=== PATIENT | male | born 1970 | race Two or more races ===

== ENCOUNTER 2016-10-17 08:40 | Observation (INO) | payer OTHER ==
--- NOTE | 2016-10-17 08:50 | CPEKG ---
Heart Rate: 73 RR Interval: 822 P-R Interval: 160 QRSD Interval: 88 QT Interval: 376 QTC Interval: 415 P [place]: 24 QRS [place]: 25 T Wave [place]: 12 EKG Severity - NORMAL ECG - EKG Impression: SINUS RHYTHM Electronically Signed By: Yefri Franz 17-Oct-2016 09:12:16
[2016-10-17] MEDS ORDERED: NS 1,000 ML IV ONE (09:06)
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
[2016-10-17 09:16] LABS: % IMMATURE GRANULYOCYTES 0.4 % (0.0-1.1); ABSOLUTE IMMATURE GRANULOCYTES 0.04 10^3/uL (0.00-0.10); ADD DIFF? NO; ADD MORPH? NO; ADD SCAN? NO; ATYPICAL LYMPHOCYTE FLAG 10 (0-99); FRAGMENT RBC FLAG 0 (0-99); HEMOGLOBIN 16.9 g/dL (13.7-17.5); LEFT SHIFT FLG 0 (0-99); LIPEMIA HEMOLYSIS FLAG 90 (0-99); MEAN CELL HEMOGLOBIN 31.4 pg (27.9-34.1); MEAN CELL HEMOGLOBIN CONCENTR. 34.5 g/dL (32.4-36.7); MEAN CELL VOLUME 90.9 fL (81.5-99.8); MEAN PLATELET VOLUME 9.6 fL (8.7-11.7); PLATELET CLUMPS FLAG 0 (0-99); PLATELET COUNT 192 10^3/uL (150-400); RED BLOOD CELL COUNT 5.39 10^6/uL (4.40-6.38); RED CELL DISTRIBUTION WIDTH 13.2 % (11.5-15.2)
[2016-10-17 09:24] LABS: INR 0.97 (0.83-1.16); PROTIME(PATIENT) 12.8 SEC (12.0-15.0)
[2016-10-17 09:33] LABS: ANION GAP 13 mEq/L (8-16); CALCIUM 9.5 mg/dL (8.5-10.4); CARBON DIOXIDE 25 mEq/l (22-31); CHLORIDE 103 mEq/L (97-110); CREATININE 0.8 mg/dL (0.7-1.3); GLOMERULAR FILTRATION RATE > 60; GLUCOSE 87 mg/dL (70-100); POTASSIUM 4.3 mEq/L (3.5-5.2); SODIUM 141 mEq/L (134-144)
[2016-10-17 09:43] LABS: TROPONIN I < 0.012 ng/mL (0-0.034)
[2016-10-17] MEDS ORDERED: IOPAMIDOL (ISOVUE-300) 100 ML BTL IV ONE (10:26)
[2016-10-17] MEDS ORDERED: HYDROmorphONE/DILAUDID 1 MG/ML SYR IVP ONE (13:23)
[2016-10-17] MEDS ORDERED: ONDANSETRON 4 MG/2 ML VIAL IVP PRN (14:52)
[2016-10-17] MEDS ORDERED: ACETAMINOPHEN 325 MG TAB PO PRN (14:52)
[2016-10-17] MEDS ORDERED: ONDANSETRON DISINTEGRATING 4 MG TAB PO PRN (14:52)
[2016-10-17] MEDS ORDERED: OXYCODONE/APAP 5/325 TAB PO PRN (14:52)
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
[2016-10-17] MEDS: IBUPROFEN 200 MG TAB PO PRN ×2 (18:09→22:47)
[2016-10-17 23:15] VITALS: TEMP 97.8
[2016-10-18 07:48] VITALS: BP 119/74; PULSE 77; RESP 14
[2016-10-18 09:49] VITALS: O2SAT 94
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
[2016-10-18] MEDS: IBUPROFEN 200 MG TAB PO PRN (12:28)
--- NOTE | 2016-10-18 15:32 | GDS ---
[f rep st] DISCHARGE SUMMARY DISCHARGE DIAGNOSIS: Transient lower extremity weakness. CONSULTATIONS: Dr. Carias of Neurology. STUDIES AND PROCEDURES DONE: 1. Thoracic spine MRI. 2. Cervical spine MRI. 3. Brain MRI. 4. CT angio of the chest. 5. CT angio of the abdomen and pelvis. 6. Lumbar spine MRI. PHYSICAL EXAM: GENERAL: The patient is alert. VITAL SIGNS: Afebrile at 36.6, pulse is 77, respir atory rate is 14, blood pressure is 119/74. He is saturating 97% on room air. I have seen and eval uated the patient on the day of discharge. HOSPITAL COURSE: The patient is a 46-year-old male who presented to the emergency room with complai nts of sudden onset bilateral lower extremity weakness and numbness. He was evaluated during this h ospitalization with extensive radiological studies as well as a Neurology consult. No etiology has been identified at the time of disposition; however, the patient's symptoms have completely resolved . He is denying any further pain or abnormalities. He will follow up in the outpatient setting wit otis Carias in the Neurology office for further testing including EMG testing. I have also recomm ended that the patient have an outpatient sleep study as he presents with evidence of obstructive sl eep apnea during this hospitalization. He likely would benefit from a CPAP and further evaluation. There are no pending studies. DISCHARGE MEDICATIONS: Please refer to EMR form. I have not adjusted the patient's previously pres cribed home medications nor have I provided any prescriptions at the time of disposition. FOLLOWUP: Will be with his primary care physician at [facility] as well as Dr. Yefri Carias of [facility]. I spent greater than 35 minutes in the care, coordination, and management of the patient's dispositi on. /[id number]/MODL
== END 2016-10-18 12:40 | disposition home or self-care (01) ==
LOC: EDUNIT# → F3N 15:37
PROVIDERS: ADMIT Internal Medicine; ATTEND Internal Medicine
DX: M54.5 Low back pain (principal); R20.2 Paresthesia of skin; M51.86 Other intervertebral disc disorders, lumbar region; E66.01 Morbid (severe) obesity due to excess calories; K80.20 Calculus of gallbladder without cholecystitis without obstruction; I10 Essential (primary) hypertension; F17.210 Nicotine dependence, cigarettes, uncomplicated; G47.33 Obstructive sleep apnea (adult) (pediatric); K76.0 Fatty (change of) liver, not elsewhere classified; Z68.41 Body mass index [BMI] 40.0-44.9, adult
CPT/HCPCS: 96374; 97162-GP; G0378; J1170; Q9967

== ENCOUNTER 2017-01-20 08:14 | Emergency (ER) | payer MEDICAID, OTHER ==
[2017-01-20 08:25] VITALS: TEMP 98.8
--- NOTE | 2017-01-20 08:34 | EDPHY ---
H & P Stated Complaint: at work, hydrolic on backhoe, exploded on face and hands. Time Seen by Provider: 01/20/17 08:25 - Personal History Current Tetanus/Diphtheria Vaccine: Yes Current Tetanus Diphtheria and Acellular Pertussis (TDAP): Yes - Medical/Surgical History Hx Asthma: No Hx Chronic Respiratory Disease: No Hx Diabetes: No Hx Cardiac Disease: No Hx Renal Disease: No Hx Cirrhosis: No Hx Alcoholism: No Hx HIV/AIDS: No Hx Splenectomy or Spleen Trauma: No Other PMH: none reported - Social History Smoking Status: Current every day smoker Constitutional: Initial Vital Signs Temperature (C) 37.1 C 01/20/17 08:23 Heart Rate 89 01/20/17 08:23 Respiratory Rate 16 01/20/17 08:23 Blood Pressure 135/104 H 01/20/17 08:23 O2 Sat (%) 94 01/20/17 08:23 O2 Delivery Mode Room Air Allergies/Adverse Reactions: No Known Allergies Allergy (Verified 10/17/16 08:53) Home Medications: Medication Instructions Recorded Cimetidine [Tagamet Hb] 200 mg PO BIDMEAL PRN 03/06/16 Naproxen Sodium [Aleve 220 MG (*)] 220 mg PO BID PRN 03/06/16 Aspirin [Aspirin 81mg (*)] 81 mg PO DAILY 10/17/16 Acetaminophen [Tylenol 325mg (*)] 650 mg PO Q4HRS PRN #0 tab 10/18/16 Ibuprofen [Motrin (*)] 400 mg PO Q4HRS PRN #0 tab 10/18/16 Medical Decision Making ED Course/Re-evaluation: CHIEF COMPLAINT: Chemical burn HISTORY OF PRESENT ILLNESS: This patient is a normally healthy 46 year old male who presents to the Emergency Department under workman's comp complaining of conner to his hands, face, and eyes secondary to a mechanical hydraulic device bursting while at work today. He reports that the oil is approximately 100F and is under some pressure. He cleaned himself up at the scene per protocol. Upon arrival, he complains of bilateral blurry vision and bilateral hand pain. He denies any additional burn sites. No additional complaints. He denies any pertinent medical history. REVIEW OF SYSTEMS: A 10 point review of systems was performed and is negative with the exception of the elements mentioned in the history of present illness. PHYSICAL EXAM: HR 84, BP 135/104, O2 Sat 94%, RR 16. Temp noted at 37.1C. General Appearance: Alert, well hydrated, appropriate, and non-toxic appearing. Head and face: Scalp is atraumatic. Superficial first degree burn to face. Eyes: Pupils equal, round, reactive to light and accommodation, EOMI, no trauma , no injection. Ears: Clear bilaterally, no perforation, normal landmarks Nose: Atraumatic, no rhinorrhea, clear. Throat: There is no erythema or exudates, no lesions, normal tonsils, mucus membranes moist. Neck: Supple, 2+ carotid upstroke, nontender, no lymphadenopathy. Respiratory: No retractions, no distress, no wheezes, and no accessory muscle use. Lungs are clear to auscultation bilaterally. Cardiovascular: Regular rate and rhythm, no murmurs, rubs, or gallops. Bilateral carotid, radial, dorsalis pedis, and posterior tibial pulses intact. Good capillary refill all extremities. Gastrointestinal: Abdomen is soft, nontender, non-distended, no masses, no rebound, no guarding, no peritoneal signs. Musculoskeletal: Normal active ROM of all extremities, atraumatic. Extremities: Superficial first degree conner to dorsum of both hands. No penetrating injuries into the hands. Neurological: Alert, appropriate, and interactive. The patient has normal DTRs and non-focal cranial nerves, motor, sensory, and cerebellar exam. Skin: Conner as described above. Past medical history: Denies Past surgical history: Denies Family history: Non-contributory Social history: Family at bedside. Works in construction. DIFFERENTIAL DIAGNOSIS: Differential diagnosis for the patient's chemical burn includes but is not limited to: first degree superficial skin conner, second degree conner, chemical eye conner, corneal abrasion. MEDICAL DECISION MAKING: Normally healthy 46-year-old male presents with complaints of blurry vision bilaterally and pain to the dorsum of both hands and his left cheek secondary to chemical exposure to hot oil while at work today. On exam, he has apparent superficial first degree conner to his face and hands. There are no penetrating injuries. Staff cleaned his eyes thoroughly which improved his vision but he continues to complain of mild blurred vision. Will consult with ophthalmology to schedule immediate follow-up. 937: Consultation with Dr. Ramsey, ophthalmology, who will see the patient in his office this morning. I discussed the plan to discharge straight to ophthalmology with the patient, who is in agreement. He will be discharged home in good condition with customary return precautions. Departure - Departure Disposition: Home, Routine, Self-Care Clinical Impression: Chemical exposure of eye, Superficial burn, Encounter related to worker's compensation claim Condition: Good Instructions: Chemical Eye Conner (ED), Superficial Burn (ED), Chemical Skin Burn (ED) Additional Instructions: 1. Go directly to [facility] as we discussed. 2. Take 600mg Ibuprofen every 6 hours as needed for pain. Take Bayard as prescribed as needed for severe pain. 3. Return to the Emergency Department if you experience severe, uncontrollable pain; changes to your vision; or for other serious concerns. 4. Follow-up with our wound care clinic if your pain is not improved in 2-3 days. [facility] [place]: [phone] Referrals: [facility] [Other] - As per Instructions Star Ramsey MD [Medical Doctor] - As per Instructions Work Comp Ref/[facility] [Outside] - As per Instructions Stand Alone Forms: Work Comp Follow Up Report Scribed for: Juan Mar Report Scribed by: Lisandra Yang Date of Report: 01/20/17 Time of Report: 08:42
[2017-01-20] MEDS ORDERED: OXYCODONE/APAP 5/325 TAB PO ONE (09:56)
[2017-01-20 10:17] VITALS: BP 134/76; PULSE 81; RESP 17; O2SAT 95
== END 2017-01-20 10:45 | disposition home or self-care (01) ==
DX: T23.101A Burn of first degree of right hand, unspecified site, initial encounter (principal); T23.102A Burn of first degree of left hand, unspecified site, initial encounter; T20.10XA Burn of first degree of head, face, and neck, unspecified site, initial encounter; F17.200 Nicotine dependence, unspecified, uncomplicated; Z77.098 Contact with and (suspected) exposure to other hazardous, chiefly nonmedicinal, chemicals; Z79.82 Long term (current) use of aspirin; X19.XXXA Contact with other heat and hot substances, initial encounter; Y92.69 Other specified industrial and construction area as the place of occurrence of the external cause; Y99.0 Civilian activity done for income or pay; Y93.89 Activity, other specified